=== PATIENT | female | born 1935 | race Caucasian/White ===

== ENCOUNTER 2024-05-31 16:34 | Inpatient (IN) | payer BC, MEDICARE ==
[~2024-05-31] VITALS: Ht 162.6 cm; Wt 64.0 kg
[2024-05-31 17:39] LABS: BASOPHILS # (AUTO) 0.1 K/UL (0.0-0.2); BASOPHILS % (AUTO) 0.8 % (0.0-2.0); EOSINOPHILS # (AUTO) 0.1 K/uL (0.0-0.7); EOSINOPHILS % (AUTO) 1.8 % (0.0-7.0); HEMATOCRIT 37.5 % (31.2-41.9); HEMOGLOBIN 12.5 g/dL (10.9-14.3); LYMPHOCYTES # (AUTO) 1.5 K/uL (0.8-4.8); LYMPHOCYTES % (AUTO) 19.3 % (20.5-51.5); MEAN CORPUSCULAR HEMOGLOBIN 30.7 uug (24.7-32.8); MEAN CORPUSCULAR HGB CONC 33 g/dL (32.3-35.6); MEAN CORPUSCULAR VOLUME 92.3 fL (75.5-95.3); MONOCYTES % (AUTO) 13.2 % (0.0-11.0); NEUTROPHILS # (AUTO) 4.9 K/uL (1.8-8.9); NEUTROPHILS % (AUTO) 64.9 % (38.5-71.5); PLATELET COUNT (AUTO) 243 K/uL (179-408); RED BLOOD CELL COUNT(AUTO) 4.06 MIL/uL (3.63-4.92); RED CELL DISTRIBUTION WIDTH 16.2 % (12.3-17.7); WHITE BLOOD COUNT (AUTO) 7.6 K/uL (3.8-11.8)
[2024-05-31 18:02] LABS: DIFFERENTIAL COMMENT 1
[2024-05-31 18:08] LABS: LACTIC ACID 2.1 mmol/L (0.4-2.0)
[2024-05-31 18:09] LABS: CALCIUM 10.1 mg/dL (8.5-10.1); CARBON DIOXIDE 30 mmol/L (21-32); CHLORIDE 100 mmol/L (98-107); GLUCOSE 100 mg/dL (74-106); POTASSIUM 3.5 mmol/L (3.5-5.1); SODIUM SERUM 146 mmol/L (136-145); UREA NITROGEN, BLOOD 47 mg/dL (7-18)
[2024-05-31 18:12] LABS: CREATININE 8.3 mg/dL (0.6-1.3)
[2024-05-31 18:21] LABS: ALANINE AMINOTRANSFERASE 27 U/L (14-59); ALBUMIN 3.3 g/dL (3.4-5.0); ALKALINE PHOSPHATASE 183 U/L (50-136); ASPARTATE AMINOTRANSFERASE 19 U/L (15-37); BILIRUBIN,DIRECT 0.1 mg/dL (0.0-0.2); BILIRUBIN,TOTAL 0.5 mg/dL (0.2-1.0); NT-PRO BNP 17656 pg/mL (0-125); TOTAL PROTEIN, SERUM 7.6 g/dL (6.4-8.2)
[2024-05-31] MEDS ORDERED: CEFTRIAXONE /D5W 50ML IVPB **ER PYXIS IV ONE (18:42)
[2024-05-31] MEDS: CEFTRIAXONE 1 G in IV DEXTROSE 5% 50 ML IV ONE (18:47)
[2024-05-31] MEDS ORDERED: VANCOMYCIN IV 200 ML ONE (19:08)
[2024-05-31] MEDS: VANCOMYCIN IV 1,000 MG in IV DEXTROSE 5% 250 ML IV ONE (19:15)
[2024-05-31] MEDS ORDERED: HYDROCODONE/APAP 5-325MG TABLET PO PRN (21:30)
[2024-05-31] MEDS ORDERED: hydrALAZINE HCL 25 MG TABLET PO PRN (21:30)
[2024-05-31] MEDS: PIPERACILLIN/TAZO 2.25 G in IV DEXTROSE 5% 50 ML IV SCH (21:30)
[2024-05-31] MEDS ORDERED: ONDANSETRON 4 MG/2 ML VIAL IV PRN (21:30)
[2024-05-31] MEDS ORDERED: PIPERACILLIN/TAZOBACTAM/D5W 50 ML ONE (23:10)
[2024-06-01] MEDS ORDERED: PANTOPRAZOLE SODIUM 40 MG TABLET.DR PO ONE (07:35)
[2024-06-01] MEDS: PANTOPRAZOLE SODIUM 40 MG TABLET.DR PO SCH (07:36)
[2024-06-01 07:52] LABS: BASOPHILS # (AUTO) 0.1 K/UL (0.0-0.2); BASOPHILS % (AUTO) 0.7 % (0.0-2.0); EOSINOPHILS # (AUTO) 0.2 K/uL (0.0-0.7); EOSINOPHILS % (AUTO) 2.4 % (0.0-7.0); HEMATOCRIT 37.1 % (31.2-41.9); HEMOGLOBIN 12.6 g/dL (10.9-14.3); LYMPHOCYTES # (AUTO) 1.5 K/uL (0.8-4.8); LYMPHOCYTES % (AUTO) 18.7 % (20.5-51.5); MEAN CORPUSCULAR HEMOGLOBIN 31.3 uug (24.7-32.8); MEAN CORPUSCULAR HGB CONC 34 g/dL (32.3-35.6); MEAN CORPUSCULAR VOLUME 92.6 fL (75.5-95.3); MONOCYTES % (AUTO) 12.3 % (0.0-11.0); NEUTROPHILS # (AUTO) 5.1 K/uL (1.8-8.9); NEUTROPHILS % (AUTO) 65.9 % (38.5-71.5); PLATELET COUNT (AUTO) 214 K/uL (179-408); RED BLOOD CELL COUNT(AUTO) 4.01 MIL/uL (3.63-4.92); RED CELL DISTRIBUTION WIDTH 16.6 % (12.3-17.7); WHITE BLOOD COUNT (AUTO) 7.8 K/uL (3.8-11.8)
[2024-06-01 07:57] LABS: DIFFERENTIAL COMMENT 1
[2024-06-01 08:24] LABS: ALANINE AMINOTRANSFERASE 23 U/L (14-59); ALBUMIN 3.1 g/dL (3.4-5.0); ALKALINE PHOSPHATASE 163 U/L (50-136); ASPARTATE AMINOTRANSFERASE 10 U/L (15-37); BILIRUBIN,TOTAL 0.5 mg/dL (0.2-1.0); CARBON DIOXIDE 30 mmol/L (21-32); CHLORIDE 96 mmol/L (98-107); CHOLESTEROL 92 mg/dL (<200); GLUCOSE 90 mg/dL (74-106); HDL CHOLESTEROL 49 mg/dL (40-60); MAGNESIUM 2.4 mg/dL (1.8-2.4); PHOSPHOROUS 6.6 mg/dL (2.5-4.9); POTASSIUM 3.8 mmol/L (3.5-5.1); SODIUM SERUM 138 mmol/L (136-145); TOTAL PROTEIN, SERUM 7.5 g/dL (6.4-8.2); TRIGLYCERIDES 86 MG/DL (30-150); UREA NITROGEN, BLOOD 53 mg/dL (7-18)
[2024-06-01 08:28] LABS: CREATININE 9.4 mg/dL (0.6-1.3)
[2024-06-01 09:12] LABS: THYROID STIMULATING HORMONE 2.306 mIU/mL (0.358-3.740)
[2024-06-01] MEDS ORDERED: PIPERACILLIN/TAZO 0.75 G in IV DEXTROSE 5% 50 ML IV PRN (10:15)
[2024-06-01] MEDS ORDERED: PIPERACILLIN/TAZOBACTAM/D5W 50 ML ONE ×2 (11:02→23:01)
[2024-06-01] MEDS: PIPERACILLIN/TAZO 2.25 G in IV DEXTROSE 5% 50 ML IV SCH (11:09)
[2024-06-01] MEDS ORDERED: MIDODRINE HCL 5 MG TABLET PO PRN (15:00)
[2024-06-01 16:30] VITALS: BP 146/78; TEMP 97.6; O2SAT 97
[2024-06-01] MEDS: HEPARIN SODIUM,PORCINE 5,000 UNITS/ML VIAL SQ SCH (20:35)
[2024-06-01 21:06] VITALS: BP 105/39; TEMP 97.6
[2024-06-02] VITALS: BP 111/35; TEMP 98; O2SAT 96
[2024-06-02] MEDS ORDERED: CICL15CR12 TOP (00:04)
[2024-06-02] MEDS ORDERED: BENZ200C53 PO (00:04)
[2024-06-02] MEDS ORDERED: CARV6.252 PO (00:04)
[2024-06-02] MEDS ORDERED: ERGO500040 PO (00:04)
[2024-06-02] MEDS ORDERED: ACET325T53 PO (00:04)
[2024-06-02] MEDS ORDERED: OMEP20TA5 PO (00:04)
[2024-06-02] MEDS ORDERED: SACC250C9 PO (00:04)
[2024-06-02] MEDS ORDERED: ASPI81TA31 PO (00:04)
[2024-06-02] MEDS ORDERED: SEVE800T8 PO (00:04)
[2024-06-02] MEDS ORDERED: LOPE2TAB25 PO (00:04)
[2024-06-02] MEDS ORDERED: FOLI0.8T2 PO ×2 (00:04)
[2024-06-02] MEDS ORDERED: ALBU8.5H8 INH (00:04)
[2024-06-02] MEDS ORDERED: BUME2TAB7 PO (00:04)
[2024-06-02] MEDS ORDERED: MAG30ORA PO (00:04)
[2024-06-02] MEDS ORDERED: TRAM50TA2 PO (00:04)
[2024-06-02] MEDS ORDERED: VITA-287 PO (00:04)
[2024-06-02] MEDS ORDERED: MAGN400O6 PO (00:04)
[2024-06-02] MEDS ORDERED: FLUT16SP BNOSTRILS (00:04)
[2024-06-02] MEDS ORDERED: CETI5TAB31 PO (00:04)
[2024-06-02] MEDS ORDERED: [UNRECOGNIZED DRUG - CODE] EACHEYE (00:04)
[2024-06-02] MEDS ORDERED: PROP15DR EACHEYE (00:04)
[2024-06-02] MEDS ORDERED: ESCI-9 PO (00:04)
[2024-06-02] MEDS ORDERED: ATOR20TA PO (00:04)
[2024-06-02] MEDS ORDERED: LEVO88TA5 PO (00:04)
[2024-06-02] MEDS ORDERED: LEVO5TAB13 PO (00:12)
[2024-06-02 04:00] VITALS: BP 106/45; TEMP 97.6; O2SAT 95
[2024-06-02 08:00] VITALS: BP 132/46; TEMP 97.7; O2SAT 99
[2024-06-02] MEDS ORDERED: ATOR40TA PO (11:52)
[2024-06-02 11:57] VITALS: BP 104/49; TEMP 97.6; O2SAT 98
[2024-06-02] MEDS ORDERED: TETRAHYDROZOLINE 0.05% OPHT DR 15 ML BOTTLE EACHEYE PRN (14:00)
[2024-06-02] MEDS ORDERED: CLOP75TA33 PO (14:36)
[2024-06-02] MEDS ORDERED: METO-356 PO (14:36)
[2024-06-02] MEDS ORDERED: MIDO10TA PO (14:36)
[2024-06-02] MEDS ORDERED: PROP1DRO4 EACHEYE (14:42)
[2024-06-02] MEDS ORDERED: VIT1CAPS44 PO (14:42)
[2024-06-02 16:29] VITALS: BP 121/54; TEMP 97.2; O2SAT 97
[2024-06-02] MEDS: SEVELAMER CARBONATE 800 MG TABLET PO SCH (18:07)
[2024-06-02] MEDS: POLYVINYL ALCOHOL OPHT DROPS 15 ML BOTTLE EACHEYE SCH (18:08)
[2024-06-02 19:00] VITALS: BP 130/62; TEMP 98; O2SAT 95
[2024-06-02] MEDS: ACETAMINOPHEN 325 MG TABLET PO PRN (20:40)
[2024-06-02] MEDS: CETIRIZINE HCL 10 MG TABLET PO SCH (20:41)
[2024-06-02] MEDS: ATORVASTATIN 40 MG TABLET PO SCH (20:42)
[2024-06-03] VITALS: BP 110/41; TEMP 97.8; O2SAT 97
[2024-06-03 04:00] VITALS: BP 128/41; TEMP 98.3; O2SAT 95
[2024-06-03] MEDS: LEVOTHYROXINE SODIUM 88 MCG TABLET PO SCH (06:30)
[2024-06-03 07:02] LABS: BASOPHILS % (AUTO) 0.7 % (0.0-2.0); EOSINOPHILS # (AUTO) 0.1 K/uL (0.0-0.7); EOSINOPHILS % (AUTO) 2.6 % (0.0-7.0); HEMATOCRIT 36.5 % (31.2-41.9); HEMOGLOBIN 12.2 g/dL (10.9-14.3); LYMPHOCYTES # (AUTO) 1.2 K/uL (0.8-4.8); MEAN CORPUSCULAR HEMOGLOBIN 30.6 uug (24.7-32.8); MEAN CORPUSCULAR HGB CONC 33 g/dL (32.3-35.6); MEAN CORPUSCULAR VOLUME 91.6 fL (75.5-95.3); MONOCYTES # (AUTO) 0.8 K/uL (0.1-1.30); MONOCYTES % (AUTO) 13.8 % (0.0-11.0); NEUTROPHILS # (AUTO) 3.4 K/uL (1.8-8.9); NEUTROPHILS % (AUTO) 60.9 % (38.5-71.5); PLATELET COUNT (AUTO) 179 K/uL (179-408); RED BLOOD CELL COUNT(AUTO) 3.98 MIL/uL (3.63-4.92); RED CELL DISTRIBUTION WIDTH 16.2 % (12.3-17.7); WHITE BLOOD COUNT (AUTO) 5.6 K/uL (3.8-11.8)
[2024-06-03 07:11] LABS: DIFFERENTIAL COMMENT 1
[2024-06-03 07:20] LABS: CALCIUM 8.8 mg/dL (8.5-10.1); CARBON DIOXIDE 32 mmol/L (21-32); CHLORIDE 98 mmol/L (98-107); GLUCOSE 86 mg/dL (74-106); MAGNESIUM 2.2 mg/dL (1.8-2.4); SODIUM SERUM 139 mmol/L (136-145); UREA NITROGEN, BLOOD 34 mg/dL (7-18)
[2024-06-03 07:25] LABS: CREATININE 7.9 mg/dL (0.6-1.3)
[2024-06-03 08:00] VITALS: BP 111/69; TEMP 97.7; O2SAT 94
[2024-06-03] MEDS: ASPIRIN 81 MG TAB.CHEW PO SCH (08:34)
[2024-06-03] MEDS: CLOPIDOGREL 75 MG TABLET PO SCH (08:34)
[2024-06-03] MEDS: FOLIC ACID/VITAMIN B COMP W-C TABLET PO SCH (08:34)
[2024-06-03] MEDS: ESCITALOPRAM OXALATE 10 MG TABLET PO SCH (08:35)
[2024-06-03] MEDS ORDERED: FOLIC ACID/VITAMIN B COMP W-C TABLET PO SCH (09:00)
[2024-06-03] MEDS ORDERED: LEVOCETIRIZINE DIHYDROCHLORIDE PO SCH (09:00)
[2024-06-03] MEDS: VITAMIN B COMPLEX 1 TABLET PO SCH (09:45)
[2024-06-03 12:00] VITALS: BP 104/49; TEMP 98; O2SAT 93
[2024-06-03 16:00] VITALS: BP 98/39; TEMP 97.5; O2SAT 92
[2024-06-03] MEDS ORDERED: CETIRIZINE HCL 10 MG TABLET PO SCH (21:00)
[2024-06-04] MEDS ORDERED: FOLIC ACID/VITAMIN B COMP W-C TABLET PO SCH (21:00)
[2024-06-05 02:07] LABS: HEPATITIS B CORE AB, TOTAL Negative (Negative); HEPATITIS B SURFACE AB, QUAL Reactive (.); HEPATITIS B SURFACE AG Negative (Negative)
== END 2024-06-03 18:15 | DRG 314 ==
LOC: ER 16:34 → TELE3 06-01 16:04
PROVIDERS: ADMIT Nurse Practitioner Family; ATTEND Nurse Practitioner Family
PROC: 5A1D70Z Performance of Urinary Filtration, Intermittent, Less than 6 Hours Per Day (ICD-10-PCS; principal; 2024-06-02)
DX: I95.0 Idiopathic hypotension (principal); N18.6 End stage renal disease; I48.20 Chronic atrial fibrillation, unspecified; I48.92 Unspecified atrial flutter; E44.1 Mild protein-calorie malnutrition; J90 Pleural effusion, not elsewhere classified; E87.20 Acidosis, unspecified; I95.3 Hypotension of hemodialysis; I25.2 Old myocardial infarction; Z66 Do not resuscitate; Z95.1 Presence of aortocoronary bypass graft; I69.322 Dysarthria following cerebral infarction; I69.398 Other sequelae of cerebral infarction; Z99.2 Dependence on renal dialysis; Z79.01 Long term (current) use of anticoagulants; I70.0 Atherosclerosis of aorta; Z95.5 Presence of coronary angioplasty implant and graft; E03.9 Hypothyroidism, unspecified; Z79.890 Hormone replacement therapy; Z96.641 Presence of right artificial hip joint; Z98.42 Cataract extraction status, left eye; Z98.41 Cataract extraction status, right eye; Z86.718 Personal history of other venous thrombosis and embolism; Z87.09 Personal history of other diseases of the respiratory system; K21.9 Gastro-esophageal reflux disease without esophagitis; I25.10 Atherosclerotic heart disease of native coronary artery without angina pectoris; Z68.24 Body mass index [BMI] 24.0-24.9, adult; E88.09 Other disorders of plasma-protein metabolism, not elsewhere classified; I35.8 Other nonrheumatic aortic valve disorders
CPT/HCPCS: 36415; 71045; 71250; 83605; 83735; 84100; 84443; 84484; 85025; 85730; 86140; 86704; 86706; 87040; 87340; 93307; A4606; A4663; G0378; J0696; J1644; J2543; J3370; J7040